=== PATIENT | female | born 2000 | race African-American/Black ===

== ENCOUNTER 2021-12-09 11:53 | Emergency (ER) | payer OTHER, SELFPAY ==
[2021-12-09 12:00] VITALS: BP 146/90; PULSE 75; RESP 18; TEMP 36.7; O2SAT 100; BMI 23.6
[2021-12-09 12:06] VITALS: PULSE 70; O2SAT 100
--- NOTE | 2021-12-09 12:14 | PC.NURSE ---
Pt states that while having intercourse condom was lost. Concerned is may be stuck in Vagina, denies any discomfort or other symptoms.
[2021-12-09 12:54] VITALS: PULSE 92; O2SAT 96
[2021-12-09 12:55] VITALS: BP 133/74
--- NOTE | 2021-12-09 14:49 | ED.PREGNANCY ---
HPI - <TRA White - Last Filed: 12/09/21 15:02> General Chief complaint: Urogenital-Female Stated complaint: Lost Condom Time Seen by Provider: 12/09/21 12:31 Source: patient Mode of arrival: Ambulatory Limitations: no limitations History of Present Illness HPI Narrative: 21-year-old female presents to the emergency department complaining of possible lost condom in vagina. Patient states that she had intercourse this morning, she is on her menses, and her and her partner could not find in a condom afterwards. She denies any vaginal pain, nausea vomiting, injury, or any other concern. She states that her and her partner try to find and they were both unsuccessful. Related Data Allergies Allergy/AdvReac Type Severity Reaction Status Date / Time No Known Drug Allergies Allergy Verified 12/09/21 12:11 Review of Systems <TRA White - Last Filed: 12/09/21 15:02> Review of Systems Narrative: General: denies fever, chills Head/Neck: denies headache, neck pain Eyes: denies visual changes, eye pain Cardio: denies chest pain, palpitations Respiratory: denies shortness of breath, cough GI: denies abdominal pain, nausea, vomiting, or diarrhea : denies dysuria, hematuria, states possible condom lost in vagina MSK: denies joint pain, muscle weakness Skin: denies rash, itching Neuro: denies numbness, tingling Exam <TRA White - Last Filed: 12/09/21 15:02> Narrative Exam Narrative: Independently reviewed vitals signs and nursing notes. General: Awake, alert, nontoxic, no cardiorespiratory distress Head/Neck: Atraumatic, neck full range of motion Eyes: EOMI, conjunctiva normal Nose: nares patent, no rhinorrhea Mouth/Throat: moist mucus membranes, no oral lesions Cardio: Regular rate and rhythm, no peripheral edema Respiratory: respirations unlabored without wheezing, stridor, or rales. No retractions. GI: Abdomen soft, nontender to palpation Helper Electrical: No significant tenderness with speculum exam, vaginal bleeding is present, condom clearly visible and removed with hemostat, no tears or particles missing from the condom. MSK: Moves all extremities, neurovascularly intact Skin: Normal capillary refill, no rash Neuro: Normal speech and cognition, normal gait Initial Vital Signs Initial Vital Signs: Vital Signs Temperature 98.1 F 12/09/21 12:00 Pulse Rate 75 12/09/21 12:00 Respiratory Rate 18 12/09/21 12:00 Blood Pressure 146/90 H 12/09/21 12:00 Pulse Oximetry 100 12/09/21 12:00 <Yaritza Gil DO - Last Filed: 12/09/21 15:04> Initial Vital Signs Initial Vital Signs: Vital Signs Temperature 98.1 F 12/09/21 12:00 Pulse Rate 75 12/09/21 12:00 Respiratory Rate 18 12/09/21 12:00 Blood Pressure 146/90 H 12/09/21 12:00 Pulse Oximetry 100 12/09/21 12:00 Course <TRA White - Last Filed: 12/09/21 15:02> Vital Signs Vital signs: Vital Signs - 8 hr 12/09/21 12:00 12/09/21 12:06 12/09/21 12:54 Temperature 98.1 F Pulse Rate 75 70 92 H Respiratory Rate 18 Blood Pressure 146/90 H Pulse Oximetry 100 100 96 12/09/21 12:55 Temperature Pulse Rate Respiratory Rate Blood Pressure 133/74 Pulse Oximetry <DO Tomer Oliveira Last Filed: 12/09/21 15:04> Vital Signs Vital signs: Vital Signs - 8 hr 12/09/21 12:00 12/09/21 12:06 12/09/21 12:54 Temperature 98.1 F Pulse Rate 75 70 92 H Respiratory Rate 18 Blood Pressure 146/90 H Pulse Oximetry 100 100 96 12/09/21 12:55 Temperature Pulse Rate Respiratory Rate Blood Pressure 133/74 Pulse Oximetry MDM - OB/Uterine Contractions <TRA White - Last Filed: 12/09/21 15:02> MDM Narrative Medical decision making narrative: Female presents the emergency department for a possible loss condom in vagina. On pelvic exam there was a easily visible condom, this was removed with hemostats, vaginal bleeding is present, patient is on her menses currently. No tears or particles missing from condoms. Patient was given strict return precautions for any pain, abdominal pain, fever, or any other concerns. Patient is appropriate and amenable to discharge home. Vital signs are stable on repeat examination is unremarkable. Patient has been informed of results. Patient has been given strict return to ER precautions for any new or worsening symptoms. Patient understands to follow up closely with outpatient providers as instructed. Patient understands plan and agrees to discharge home. All questions and concerns answered at this time. Discharge Plan Departure Patient Disposition: Home Clinical Impression: Foreign body in vagina Qualifiers: Encounter type: initial encounter Qualified Code(s): T19.2XXA - Foreign body in vulva and vagina, initial encounter Activity Restrictions/Additional Instructions: *You have been diagnosed with a condom in your vagina. The whole condom was removed. Thank you for trusting us with your care, have a good rest of your day. *What to do: *Please continue to take your regular medications as directed. [ ] New medication prescriptions sent to your pharmacy: [ ] [ ] New medication written as a paper prescription [x ] No new medications given *Please follow up with your primary care provider in 2-3 days, call for an appointment. Let them know you were seen in the Emergency Department and that we asked that you be seen for follow-up. We will electronically transmit a record of today's note if your PCP is in our system *If you do not have a primary care provider please contact [phone] to establish care with one of the [facility] primary care providers. *Return to Emergency Department if you should have any new, worsening or concerning symptoms, such as [fever greater than 101F, chills, worsening pain, persistent vomiting or other bothersome symptoms] Referrals: Miscellaneous,[facility] [Primary Care Provider] - <Yaritza Gil DO - Last Filed: 12/09/21 15:04> Cosign ED Attending Gianni Attestation: I was immediately available in the department for consultation. Documentation has been reviewed.
== END 2021-12-09 12:59 | disposition home or self-care (01) ==
PROVIDERS: Emergency Provider Nurse Practitioner Critical Care Medicine
DX: T19.2XXA Foreign body in vulva and vagina, initial encounter (principal); X58.XXXA Exposure to other specified factors, initial encounter
CPT/HCPCS: 99281; 99282